=== PATIENT | female | born 1965 | race Two or more races ===

== ENCOUNTER 2021-03-17 12:15 | Inpatient (IN) | payer OTHER ==
[~2021-03-17] VITALS: Ht 170.2 cm; Wt 86.2 kg
[2021-03-17] MEDS ORDERED: SYNTHROID125 MCG PO (14:05)
[2021-03-17] MEDS ORDERED: ZOCOR20 MG PO (14:05)
[2021-03-17] MEDS ORDERED: INVOKAMET 150-1 EACH PO (14:05)
[2021-03-17] MEDS ORDERED: LANTUS SOL100 UNIT/1 (14:06)
[2021-03-20] MEDS ORDERED: TRIMO-SAN JE113.4 G1 (07:57)
[2021-03-20] MEDS ORDERED: CLOTRIMAZOLE-BE15 G1 (07:57)
[2021-03-20] MEDS ORDERED: MOMETASONE FURO60 ML (07:58)
[2021-03-20] MEDS ORDERED: AMMONIUM LACTA385 GM (07:58)
[2021-03-20] MEDS ORDERED: FLUCONAZOLE150 MG (07:58)
[2021-03-20] MEDS ORDERED: TERCONAZOLE20 GM (07:58)
[2021-03-24] MEDS ORDERED: HYOSCYAMINE0.125 M1 SL (10:20)
[2021-03-24] MEDS ORDERED: OXYC1TAB9 PO (10:20)
== END 2021-03-24 13:22 | disposition home or self-care (01) | DRG 330 ==
LOC: SURG 03-20 06:00 → O/R 03-20 06:00 → SURH 03-20 12:15 → SURG 03-20 14:02 → SURH 03-20 14:15 → SURG 03-24 13:22
PROVIDERS: Obstetrics & Gynecology Gynecologic Oncology; ADMIT Surgery; ATTEND Surgery
PROC: 0DJD8ZZ Inspection of Lower Intestinal Tract, Via Natural or Artificial Opening Endoscopic (ICD-10-PCS; 2021-03-20)
PROC: 0UB94ZZ Excision of Uterus, Percutaneous Endoscopic Approach (ICD-10-PCS; 2021-03-20)
PROC: 0UT94ZZ Resection of Uterus, Percutaneous Endoscopic Approach (ICD-10-PCS; 2021-03-20)
PROC: 0UT24ZZ Resection of Bilateral Ovaries, Percutaneous Endoscopic Approach (ICD-10-PCS; 2021-03-20)
PROC: 0UT74ZZ Resection of Bilateral Fallopian Tubes, Percutaneous Endoscopic Approach (ICD-10-PCS; 2021-03-20)
PROC: 07BC4ZX Excision of Pelvis Lymphatic, Percutaneous Endoscopic Approach, Diagnostic (ICD-10-PCS; 2021-03-20)
PROC: 0DBN4ZZ Excision of Sigmoid Colon, Percutaneous Endoscopic Approach (ICD-10-PCS; principal; 2021-03-20 14:15)
PROC: 0DTP4ZZ Resection of Rectum, Percutaneous Endoscopic Approach (ICD-10-PCS; 2021-03-20 14:15)
DX: K57.20 Diverticulitis of large intestine with perforation and abscess without bleeding (principal); N82.8 Other female genital tract fistulae; F41.9 Anxiety disorder, unspecified; N72 Inflammatory disease of cervix uteri; D25.1 Intramural leiomyoma of uterus

== ENCOUNTER 2021-08-10 12:20 | Inpatient (IN) | payer OTHER ==
[~2021-08-10] VITALS: Ht 167.6 cm; Wt 81.6 kg
[~2021-08-10 12:20] MED LIST: AMMONIUM LACTA385 GM; CLOTRIMAZOLE-BE15 G1; FLUCONAZOLE150 MG; HYOSCYAMINE0.125 M1 SL; INVOKAMET 150-1 EACH PO; LANTUS SOL100 UNIT/1; MOMETASONE FURO60 ML; OXYC1TAB9 PO; SYNTHROID125 MCG PO; TERCONAZOLE20 GM; TRIMO-SAN JE113.4 G1; ZOCOR20 MG PO
--- NOTE | 2021-08-10 12:30 | NUR ---
SE RECIBE PTE ALERTA Y ORIENTADA X3 LA CUAL REFIERE VENIR POR DOLOR ABDOMINAL , PTE REFIERE EVER SIDO OERADA DE DIVERTICULOS POR DR. VASQUEZ. SE MIDEN S/V A PTE Y SE COLOCA EN SNEHA.
--- NOTE | 2021-08-10 13:25 | NUR ---
PTE EVALUADA POR EL DR SOLIS QUIEN ORDENA EL [place]. MS G WILSON ORIENTA SOBRE EL MISMO, LO CUAL REFIERE ENTENDER Y REALIZA PRUEBAS DE LABORATORIO CONNIE ORDEN MEDICA Y SIGUIENDO MEDIDAS ASEPTICAS Y ESTERILES.
--- NOTE | 2021-08-10 16:24 | NUR ---
PTE ALERTA Y ORIENTADA X 3 ESFERAS EN CAMA CON BARANDAS ELEVADAS,EN CUARTO DE AISLAMIENTO.AREA DE VENOPUNCION PATENTE Y MARIA ELENA DE EDEMA CON FLUIDOS DE MANTENIMIENTO.PENDIENTE A EVALUACION DE BERTHA LYNNE.
[2021-08-12] MEDS ORDERED: GABAPENTIN300 M2 (11:01)
[2021-08-22] MEDS ORDERED: CIPRO500 MG PO (08:59)
[2021-08-22] MEDS ORDERED: PROTONIX40 MG PO (09:00)
[2021-08-22] MEDS ORDERED: METRONIDAZOLE500 MG PO (09:00)
== END 2021-08-22 12:36 | disposition home or self-care (01) | DRG 373 ==
LOC: ER 12:20 → SURG 21:44 → SURH 08-12 08:02
PROVIDERS: ADMIT Surgery; ATTEND Surgery
PROC: 0W9J30Z Drainage of Pelvic Cavity with Drainage Device, Percutaneous Approach (ICD-10-PCS; principal; 2021-08-11)
PROC: 02HV33Z Insertion of Infusion Device into Superior Vena Cava, Percutaneous Approach (ICD-10-PCS; 2021-08-11)
PROC: BW2110Z Computerized Tomography (CT Scan) of Abdomen and Pelvis using Low Osmolar Contrast, Unenhanced and Enhanced (ICD-10-PCS; 2021-08-15)
PROC: BW211ZZ Computerized Tomography (CT Scan) of Abdomen and Pelvis using Low Osmolar Contrast (ICD-10-PCS; 2021-08-21)
DX: K65.1 Peritoneal abscess (principal); N20.0 Calculus of kidney; K57.30 Diverticulosis of large intestine without perforation or abscess without bleeding; E11.9 Type 2 diabetes mellitus without complications; E03.9 Hypothyroidism, unspecified; E88.09 Other disorders of plasma-protein metabolism, not elsewhere classified; I11.9 Hypertensive heart disease without heart failure